=== PATIENT | female | born 1965 | race Two or more races ===

== ENCOUNTER 2022-07-01 08:28 | Emergency (ER) | payer OTHER ==
[~2022-07-01] VITALS: Ht 160 cm; Wt 86.2 kg
[2022-07-01] MEDS ORDERED: TOPROL XL100 M1 PO (08:46)
[2022-07-01] MEDS ORDERED: ENALAPRIL MALE2.5 MG PO (08:46)
[2022-07-01] MEDS ORDERED: JARDIANCE10 MG PO (08:47)
[2022-07-01] MEDS ORDERED: JANUVIA100 MG PO (08:47)
== END 2022-07-01 14:43 | disposition home or self-care (01) ==
LOC: ER 08:28
DX: N93.9 Abnormal uterine and vaginal bleeding, unspecified (principal); I10 Essential (primary) hypertension; E11.9 Type 2 diabetes mellitus without complications; Z91.013 Allergy to seafood